=== PATIENT | female | born 1965 | race Caucasian/White ===

== ENCOUNTER 2017-02-13 07:19 | Emergency (ER) | payer BC ==
[2017-02-13 07:29] VITALS: BP 182/98
--- NOTE | 2017-02-13 08:11 | ERNOTE ---
Lower Extremity HPI - Narrative Date of Service: 02/13/17 - General Lower Extremities Pain: leg: right Source: patient Exam Limitations: no limitations - Immun/Allergies/Home Medications Immunizations: IMMUNIZATION HX Immunizations Up to Date Yes History of Influenza Vaccine No Hx Pneumococcal Vaccination No Allergies/Adverse Reactions: Allergies Allergy/AdvReac Type Severity Reaction Status Date / Time Penicillins Allergy Intermediate Hives Verified 02/13/17 07:29 Home Medications: HOME MEDICATIONS Bupropion HCl [Wellbutrin Xl] 300 mg PO DAILY 07/13/16 [Last Taken Unknown] Duloxetine HCl [Cymbalta] 150 mg PO DAILY 07/13/16 [Last Taken Unknown] Lisinopril [Zestril] 20 mg PO DAILY 02/13/17 [Last Taken Unknown] - History of Present Illness Narrative: Patient was scratching her leg this morning and one of her veins started bleeding. This was her right low right anterior baron area. No other bleeding or briusing. No other trauma. No bone pain. NO recent illnesses. She states it was bleeding quite a bit held pressure and came here. Has had these bleed before. No other pain or complaints. Occurred: just prior to arrival, yesterday Method of Injury: Reports: other - scratched Loss of Consciousness: Reports: no loss of consciousness Modifying Factors - (Improves): Reports: other - pressure Associated Symptoms: Denies: unable to bear weight Other Injuries: Reports: none Review of Systems - Review of Systems Constitutional: Absent: fever Respiratory: Absent: shortness of breath Cardiology: Absent: chest pain Gastrointestinal/Abdominal: Absent: abdominal pain Neurological: Absent: weakness - Patient's Past Medical History Patient History - Medical: Chronic Pain, Depression Patient History - Cardiac/Respiratory: Hypertension Patient History - Cancer: No Hx of Cancer Patient History - Surgical Procedures: Tubal Ligation Patient History - Other: None - Social History Living Situations: home Abuse History: No History of abuse Psych History: Hx of Anxiety, Hx of Depression, Current tx/ever been on anti- depressants or anti-anxiety meds Alcohol Use: none Drug Use: none - Immunizations Immunizations Up to Date: Yes Hx Pneumococcal Vaccination: No History of Influenza Vaccine: No Physical Exam - Physical Exam General Appearance: Present: alert, no apparent distress Head Exam: Present: normal inspection Neck: Present: normal inspection Respiratory: Present: no respiratory distress, lungs clear Cardiovascular/Chest: Present: regular rate, rhythm, normal peripheral pulses Extremity Exam: Present: normal range of motion, other - Apparent varicosity right anterior baron that has now stopped bleeding. Foot warm and well perfused. No DVT. No neeuro or vascular deficits. Neurological Exam: Present: alert, normal mood/affect, no motor/sensory deficits Skin Exam: Present: normal color, warm/dry, other - no cellulitis ED Progress - Vital Signs Patient's Vital Signs:: I have reviewed the patient's vital signs. Vital Signs: Vital Signs 02/13/17 07:23 Temperature 36.1 C L Pulse Rate 79 Respiratory 12 Rate Blood Pressure 182/98 O2 Sat by Pulse 94 Oximetry - Progress/Reassessment Chief Complaint: Lower Extremity Pain/ Injury Progress Note-Subjective: 02/13/17 08:09 I do not feel labs or imaging indicated. Her bleeding has now stopped. Will apply surgicel and keep bandaged with PCP f/u within 3 days. Departure Clinical Impression: Bleeding - Departure Disposition: Home self-care Condition: Stable Additional Instructions: Keep the area bandaged. Pressure for 20 minutes if it starts bleeding again, if this does not stop the bleeding return here. Return here sooner for signs of infection, bleeding or if your condition worsens or changes in any way. FOllow-up with your primary doctor within 3 days for a re-check.
--- OUTSIDE RECORDS SUMMARY | 2017-02-13 08:18 | XMS REPORT | Clinical Summary ---
:1965 Author Organization [employer] [place] [address] Care Team Providers Name Role Phone Unavailable Primary Care Provider Unavailable Source Comments This disclosure is being made pursuant to the [employer] program and maynot contain all information available regarding this patient.[employer] [employer] Allergies Not on File Current Medications Be aware that medications may not be up to date as of this document. Alwaysverify current medications with the patient. Not on file Active Problems Not on file Social History Tobacco Use Types Packs/Day Years Used Date Never Assessed Sex Assigned at Date Recorded Not on file Last Filed Vital Signs Not on file Plan of Treatment Health Maintenance Due Date Last Done Comments Tetanus/Pertussis (1 - Tdap) 1983 Pap Smear 1985 Colonoscopy 2014 Mammogram 2014 Well Adult Visit 2014 INFLUENZA IMMUNIZATION (#1) 2017 Results Not on filefrom Last 3 Months
== END 2017-02-13 08:22 | disposition home or self-care (01) ==
LOC: ER 07:19
DX: S85.901A Unspecified injury of unspecified blood vessel at lower leg level, right leg, initial encounter (principal); X58.XXXA Exposure to other specified factors, initial encounter; Y93.89 Activity, other specified; I10 Essential (primary) hypertension; F32.9 Major depressive disorder, single episode, unspecified